=== PATIENT | male | born 1975 | race Caucasian/White ===

== ENCOUNTER → 2019-10-26 14:00 | Outpatient (CLI) | payer OTHER, SELFPAY ==
[2019-10-26 13:49] VITALS: BMI 28.5
--- NOTE | 2019-10-26 14:04 | RAD_ITS ---
STUDY: X-RAY - CERVICAL SPINE REASON FOR EXAM: Male, 43 years old. Neck pain TECHNIQUE: 4 view(s) of the cervical spine were obtained. COMPARISON: None FINDINGS: Normal anterior atlantoaxial articulation. Normal odontoid process. Normal cervical lordosis. There is multi-level endplate spondylosis. Normal disc space heights. Normal visualized intervertebral neuroforamina. The soft tissue structures are unremarkable. The flexion-extension views show limited range of motion suggesting muscles spasm. There is no evidence of instability. RAD/Cerv Spine 4 or 5 Views IMPRESSION: There is multi-level endplate spondylosis of the visualized cervical spine. Electronically Signed: Kannan Fernandez, at 7:42 EST Tel , Service support ,
== END ==
PROVIDERS: Referring Provider Orthopaedic Surgery; Visit Provider Orthopaedic Surgery
DX: M47.812 Spondylosis without myelopathy or radiculopathy, cervical region (principal)
CPT/HCPCS: 72050

== ENCOUNTER 2025-04-04 07:10 | Day surgery (SDC) | payer OTHER, SELFPAY ==
--- NOTE | 2025-04-01 12:02 | EKG12_ITS ---
Test Reason : PREOP Blood Pressure : */* mmHG Vent. Rate : 65 BPM Atrial Rate : 65 BPM P-R Int : 150 ms QRS Dur : 98 ms QT Int : 394 ms P-R-T Axes : 38 -1 38 degrees QTcB Int : 409 ms Normal sinus rhythm Normal ECG Confirmed by HILARIO TORRES, MAAME ([id number]), associate editor ZHANNA LAGOS ([id number]) on 04/01/2025 1:14:31 PM Referred By: Anand Gutierrez Confirmed By: MAAME RICH MD
[2025-04-04] VITALS (8 sets, daily range): BP systolic 112–136; BP diastolic 60–92; PULSE 76–95; RESP 14–18; TEMP 36.1–36.6; O2SAT 92–97
[2025-04-04] MEDS: Lactated Ringers 1,000 ML 15 ML IV (07:51)
--- NOTE | 2025-04-04 08:17 | PCM.PRE.AN2 ---
ASA Classification* ASA Classification ASA Classification: 2 (REDDY (has inspire implant), HTN, allergies) Assessment & Plan Anesthesia* Anesthesia Assessment Anesthesia Assessment: Discussed sedation and/or anesthesia options, risks, benefits, and alternatives with patient/parents/legal guardian/POA. Questions invited. The patient/parents/legal guardian/POA seems to understand and agrees to proceed with anesthesia plan. Reviewed the physical assessment, medical history, allergy history and patient home medications list prior to surgery/procedure/anesthetic and documented any changes. Performed airway and anesthesia risk assessments. Anesthesia Type Anesthesia Type: General Anesthesia Focused Assessment* Temperature: 97.6 F Pulse Rate: 76 Blood Pressure: 136/88 Respiratory Rate: 16 Pulse Ox: 97 Oxygen Delivery Method: Room Air Airway Assessment Mouth opens: >3 cm Mallampati Score: II Teeth Condition: Intact Neck Range of motion (ROM): Full ROM Focused Labs Anesthesia Preop lab: CBC WBC Pending 04/04/25 08:00 04/04/25 RBC Pending 04/04/25 08:00 04/04/25 Hgb Pending 04/04/25 08:00 04/04/25 Hct Pending 04/04/25 08:00 04/04/25 Plt Count Pending 04/04/25 08:00 04/04/25 CHEMISTRY COAG Pre-Assessment Diagnosis/Proposed Procedure Planned Operative Procedure(s): Septoplasty,Resect/Outfractur Turbinates Anesthesia History Anesthesia History - improvement specialist: Anesthesia History - improvement specialist Hx Hospitalization No 03/29/25 08:20 Any Problems With Anesthesia No 03/29/25 08:20 Cholinesterase deficiency No 03/29/25 08:20 You/Your Family Experience No 03/29/25 08:20 fever (hyperthermia) with Relationship Recent Exposure to Contagious No 04/04/25 07:38 Disease Does patient have nerve No 03/29/25 08:20 stimulator Patient instructed to have device shut off --Does patient have Pacemaker No 04/04/25 07:38 or ICD? When Was Last Pacemaker Check QUESTION #4 FULL TEXT: You/Your Family Experience fever (hyperthermia) with Anesthesia Last Oral Intake Last Oral intake: Last Oral Intake NPO since 19:00 04/04/25 07:38 Meds taken in AM with sips of Yes 04/04/25 07:38 water? Meds patient instructed to amlodipine 04/04/25 07:38 take am of surgery PONV PONV - improvement specialist: PONV - improvement specialist Female No 03/29/25 08:20 HX of Motion Sickness No 03/29/25 08:20 HX of N/V After Surgery No 03/29/25 08:20 Non-Smoker Yes 03/29/25 08:20 Duration of Surgery greater Yes 03/29/25 08:20 than 60 minutes Number of Risk Factors 2 03/29/25 08:20 PONV Score Moderate Risk 03/29/25 08:20 Height & Weight Height & Weight: Anesthesia: Height & Weight Height 5 ft 5 in 04/04/25 07:38 Respiratory Assessment Respiratory Assessment - improvement specialist: Respiratory Tract Infection Hx - improvement specialist Hx Respiratory Tract Infection No 03/29/25 08:20 STOP Sleep Apnea STOP Sleep Apnea - improvement specialist: STOP Sleep Apnea - improvement specialist Hx Hypertension Yes: conrtrolled with med 03/29/25 08:20 Hx Sleep Apnea Yes 03/29/25 08:20 CPAP Yes 03/29/25 08:20 BIPAP No 03/29/25 08:20 Do you snore loudly (louder than talking or can be heard Do you often feel tired/ fatigued/ sleepy during daytime? Has anyone observed you stop breathing during sleep? STOP Results Positive 03/29/25 08:20 QUESTION #5 FULL TEXT : Do you snore loudly (louder than talking or can be heard through closed doors)? 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 Specify any problems Hx of Preganancy in last 3 N/A 03/29/25 08:20 Months Nurse Filling Out Transfusion NBUCHER 03/29/25 08:20 & Questions: Date: 03/29/25 03/29/25 08:20 Time: 08:23 03/29/25 08:20 Patient unable to answer at this time (ie. confused, unrespo /Reproduction History /Reproductive History - improvement specialist: /Reproductive Hx- improvement specialist Hx Now No 03/29/25 08:20 Gestational Age (in weeks): EDC: Hx Hx Para Hx Section SAB No 03/29/25 08:20 Active Medications Active Medications: Current Medications Generic Name Dose Route Start Last Admin Trade Name Freq PRN Reason Stop Dose Admin Lactated Ringer's 1,000 mls @ 15 mls/hr 04/04/25 07:30 04/04/25 07:51 IV 15 mls/hr .Q48H JACI Administration PFS Medical History (Updated 03/29/25 @ 08:26 by Esperanza Zuniga) Wears hearing aid Loss of hearing CPAP (continuous positive airway pressure) dependence Sleep apnea Former smoker Hypertension Home Medications ?Medication ?Instructions ?Recorded ?Last Taken ?Type amlodipine 5 mg tablet 5 mg PO DAILY 10/26/19 04/04/25 06:00 History fluticasone propionate 50 2 spray intranasal DAILY 03/29/25 Unknown History mcg/actuation nasal spray,suspension montelukast 10 mg tablet 10 mg PO DAILY 03/29/25 Unknown History trazodone 100 mg tablet 100 mg PO QHS 03/29/25 Unknown History Allergy/AdvReac Type Severity Reaction Status Date / Time bacitracin (From Neosporin Allergy bumps form Verified 04/04/25 07:37 ([id number])) neomycin (From Neosporin Allergy bumps form Verified 04/04/25 07:37 ([id number])) polymyxin B (From Neosporin Allergy bumps form Verified 04/04/25 07:37 ([id number])) Surgical History (Updated 03/29/25 @ 08:26 by Esperanza Zuniga) History of surgery H/O vasectomy Social History (Updated 10/26/19 @ 15:[address] Frances Aldridge MD) Smoking Status: Former smoker alcohol intake: current Review of Systems (Anesthesia) ROS Narrative System reviewed and no additional complaints, except as documented. Physical Exam Const alert, oriented x3 and average body habitus Resp normal respiratory effort, normal air movement and clear to auscultation bilaterally Cardio regular rate, regular rhythm, no murmurs and diaphoretic
[2025-04-04 08:18] LABS: Hematocrit 40.3 % (40-54); Hemoglobin 14.8 g/dL (13.0-16.5); Mean Corp Hgb Conc 36.7 g/dL (32-36); Mean Corpuscular Hgb 30.3 pg (27.0-32.0); Mean Corpuscular Volume 82.6 fL (80-94); Mean Platelet Vol. 9.7 fl (6.2-12.0); Platelet Count 237 K/mm3 (150-450); RBC Distribution Width CV 11.9 % (11.6-14.6); RBC Distribution Width SD 35.6 fl (35.1-43.9); Red Blood Count 4.88 M/mm3 (4.6-6.2); White Blood Count 7.1 K/mm3 (4.4-11.0)
--- NOTE | 2025-04-04 08:45 | ETH_PTH ---
PATIENT: SAM MURRY LOC: [facility] [place] U#:[id number] AGE/SX: 49/M ROOM: RE04/04/[address]: Dr. Anand Gutierrez MD : [id number] BED: DIS: 04/04/2025 SPEC #: [id number] RECD: 04/04/25 10:48 STATUS: MARY TAE #: [id number] MILAGROS: 04/04/25 08:[address]: Anand Gutierrez DEPT: SURGICAL PATHOLOGY RECD BY: Ranulfo Orosco ENTERED: 04/04/25 11:47 SP TYPE: ETH TISS OTHR DR: [facility] Tissues: A - Ethmoid sinus, NOS Procedures: Decalcification bone/plaque Surgery Specimen Level IV HEADER OPERATION: Septoplasty, submucous resection turbinates PRE-OP DIAGNOSIS: Nasal obstructive airway, deviated nasal septum, hypertrophy tubrinates TISSUE SUBMITTED: A- Nasal septal cartilage MICROSCOPIC DIAGNOSIS A. Nasal septum, septoplasty: * Benign cartilage and bone MICROSCOPIC DESCRIPTION Slides are reviewed. GROSS DESCRIPTION A. Received in formalin in a container labeled with the patient's name, date of , and nasal are multiple red-pink, irregular, and indurated fragments of cartilage measuring 2.4 x 2.4 x 1.0 cm in aggregate. The largest fragments are sectioned to reveal white-tinsley, uniform surfaces. 2 red-pink fragments are firm and calcified, possibly consistent with bone measuring 2.0 x 0.8 x 0.3 cm and 2.5 x 0.5 x 0.3 cm. Submitted entirely as follows:A1. CartilageA2. Bone following decalcification [facility] 04-04-2025 CPT:44202,57841
--- NOTE | 2025-04-04 09:04 | PCM.DC.SUM ---
Providers Primary Care Physician: [facility] Reason For Visit: Septoplasty,Resect/Outfractur Turbinates Medications at Discharge Home Medications amlodipine 5 mg tablet 5 mg PO DAILY 10/26/19 fluticasone propionate 50 mcg/actuation nasal spray,suspension 2 spray intranasal DAILY 03/29/25 montelukast 10 mg tablet 10 mg PO DAILY 03/29/25 trazodone 100 mg tablet 100 mg PO QHS 03/29/25 ABG / Lab / Microbiology Data 04/04/25 08:00 Laboratory: Laboratory Results - last 24 hr 04/04/25 08:00: WBC 7.1, RBC 4.88, Hgb 14.8, Hct 40.3, MCV 82.6, MCH 30.3, MCHC 36.7 H, RDW Std Deviation 35.6, RDW Coeff of Jeronimo 11.9, Plt Count 237, MPV 9.7 D/C Instructions Discharge Diet: No restrictions Additional Activity Instructions: No nose blowing Start saline 3x/day on 04/05/25 DC O2, CPAP, BIPAP Needs Home O2 Discharge instructions: No Please Follow Up With: Anand Gutierrez MD When: 8 days Meaningful Use Info Meaningful Use Meaningful Use Diagnoses (Choose all that apply): None applicable Ischemic Stroke Statin Dosing Therapy Reference: STATIN DOSE THERAPY REFERENCE: * Patients > 75 years receive moderate or high dose statin therapy. * Patients 75 years or YOUNGER should receive HIGH intensity statin dose unless contraindicated. You will be required to document reason for non-treatment if statin daily dose does not meet guidelines. HIGH DOSE STATIN THERAPY DAILY Atorvastatin > than or = to 40 mg Rosuvastatin > than or = to 20 mg Amlodipine + Atorvastatin > than or = to 2.5/40 mg Ezetimibe + Simvastatin 10/80 mg Simvastatin 80mg Discharge Plan Admission Attending Provider: Anand Gutierrez Primary Care Provider: [facility] Instructions Print Language: Kiswahili Discharge Orders/Prescriptions Prescriptions: No Action amlodipine 5 mg tablet 5 mg PO DAILY trazodone 100 mg tablet 100 mg PO QHS fluticasone propionate 50 mcg/actuation spray,suspension 2 spray INTRANASAL DAILY montelukast 10 mg tablet 10 mg PO DAILY Referrals / Follow Up: [facility] [Primary Care Provider] - Disposition Disposition (needs filled in before D/C Order can be placed): Home, Self Care
--- NOTE | 2025-04-04 09:05 | OP.PCM_ITS ---
Operative Report (Standard) Operative Information Date of Procedure: 04/04/25 Pre-Operative Diagnosis: nasal airway obstruction deviated septum inferior turbinate hypertrophy bilaterally Post-Operative Diagnosis: same Surgery/Procedure Performed: Septoplasty Submucous resection inferior turbinates bilaterally information assurance engineer: No Type of Anesthesia: General RN Documented Start/Stop Times: Operation Date: 04/04/25 08:45 Case Time Into Pre-Op 04/04/25 07:21 Out of Pre-Op 04/04/25 08:58 Procedure Start Time: 09:18 Procedure Stop Time: 10:05 Select all DRAINS/GRAFTS/IMPLANTS that apply: None Estimated Blood Loss: minimal Specimen collected: Yes Description of specimen(s) removed: septum Description of surgery: The patient was taken to the operating room on 04/04/25. He was placed in supine position on the operating table. He was given sufficient general endotracheal anesthesia. The table was elevated 30 degrees. The nose was draped sterilely. 1% lidocaine with epinephrine was injected into the septum nasal floor anterior aspect of the inferior turbinates bilaterally. Nasal hair was trimmed with the scissors and removed. A right hemitransfixion incision was made with a 15 blade. The mucoperichondrium was elevated off of the left-hand side of the septum with a [place] elevator. An anterior and posterior tunnel were created in this fashion. The bony cartilaginous junction was with a [place] elevator. A posterior tunnel was created on the right side developed by elevating the mucoperichondrium with a [place]. The deviated portions of bony septum removed using open Jl-Moffett forceps. Next I established a plane on the right-hand side of the quadrangular cartilage as it was completely deviated into the right nasal cavity. I left a superior and anterior cartilage strip of 1.5 cm however the rest the quadrangular cartilage was excised with open jl moffett forceps. The maxillary crest was removed with a hammer and chisel. The remaining quadrangular cartilage was scored with a 15 blade. Afrin was used for hemostasis as well as Suma powder. Next, an incision was placed anterior aspect of the right inferior turbinate at the mucocutaneous junction. A submucous plane established with a caudal elevator. Submucous resection was carried out using a microdebrider where bone and tissue were removed. Afrin pledgets were used for hemostasis. The incision was then closed with 4-0 chromic. Then, an incision was placed at the anterior aspect of the left inferior turbinate at the mucocutaneous junction. A submucous plane established using a caudal elevator. Submucous resection was carried out using a microdebrider where bone and tissue were removed. The incision was then closed with 4-0 chromic. Afrin and Suma were used for hemostasis. The hemitransfixion incision was closed with 4-0 chromic. Story nasal splints were applied to each side of the septum and sewn through and through with 3-0 silk. The patient was then awoken and brought to the recovery room in stable condition. Blood loss minimal, replacement none. Sponge, needle count, sponge count, were correct at the end of this procedure. Surgical Findings: deviated septum turbinate hypertrophy Complications Complications: No
[2025-04-04] MEDS: Lidocaine 1% /Epi 1:100 (20ml) 20 ML Vial (09:18)
[2025-04-04] MEDS: Oxymetazoline 0.05% 1 SPRAY SPRAY.BTL 15 SPRAY (09:18)
[2025-04-04] MEDS: Mupirocin Ointment 22gm Tube 1 APPLIC (09:52)
--- NOTE | 2025-04-04 10:22 | PCM.POST.ANE ---
Anesthesia: Postop Eval I Current Vital Signs Temperature: 97 F Pulse Rate: 93 Blood Pressure: 112/60 Respiratory Rate: 16 Pulse Ox: 93 Oxygen Delivery Method: Room Air Assessment Airway patent: Yes Spontaneous unlabored respirations: Yes Mental status: Awake and Uncooperative nausea: No Vomiting: No Anesthesia Complication: No Fluid Hydration Crystalloid volume administer (ml): 1,100 Total IV fluid infused: 1,100 Progress Note Anesthesia document: Postop Eval 1 completed: Yes
--- NOTE | 2025-04-04 10:48 | POSTOPAN2_ITS ---
Anesthesia Postop Eval I Sum Postop Eval Completion status Anesthesia document: Postop Eval 1 completed: Yes Anesthesia Postop Eval I Summary Anesthesia Postop Eval I Summary: Anesthesia Postop Eval I: Assessment Summary Airway patent Yes 04/04/25 10:23 GIN INSPECTOR.PKEL Spontaneous unlabored Yes 04/04/25 10:23 GIN INSPECTOR.PKEL respirations Mental status Awake, 04/04/25 10:23 GIN INSPECTOR.PKEL Uncooperative nausea No 04/04/25 10:23 GIN INSPECTOR.PKEL Vomiting No 04/04/25 10:23 GIN INSPECTOR.PKEL Anesthesia Postop Eval I: Fluid Summary Crystalloid volume administer 1,100 04/04/25 10:23 GIN INSPECTOR.PKEL (ml) Colloids volume administered ( ml) Blood Product volume administered (ml) Total IV fluid infused 1,100 04/04/25 10:23 GIN INSPECTOR.PKEL Anesthesia Postop Eval I: Summary Notes Anesthesia Complication No 04/04/25 10:23 GIN INSPECTOR.PKEL Anesthesia Complication Comment: Post-operative progress note Anesthesia: Postop Eval II Evaluation Mental status: Awake Pain Level: 0 nausea: No Vomiting: No Complications Anesthesia Complication: No
--- NOTE | 2025-04-04 10:48 | PCM.POSTANE2 ---
Anesthesia Postop Eval I Sum Postop Eval Completion status Anesthesia document: Postop Eval 1 completed: Yes Anesthesia Postop Eval I Summary Anesthesia Postop Eval I Summary: Anesthesia Postop Eval I: Assessment Summary Airway patent Yes 04/04/25 10:23 EXECUTIVE VICE PRESIDENT AND CHIEF OPERATING OFFICER.PKEL Spontaneous unlabored Yes 04/04/25 10:23 EXECUTIVE VICE PRESIDENT AND CHIEF OPERATING OFFICER.PKEL respirations Mental status Awake, 04/04/25 10:23 EXECUTIVE VICE PRESIDENT AND CHIEF OPERATING OFFICER.PKEL Uncooperative nausea No 04/04/25 10:23 EXECUTIVE VICE PRESIDENT AND CHIEF OPERATING OFFICER.PKEL Vomiting No 04/04/25 10:23 EXECUTIVE VICE PRESIDENT AND CHIEF OPERATING OFFICER.PKEL Anesthesia Postop Eval I: Fluid Summary Crystalloid volume administer 1,100 04/04/25 10:23 EXECUTIVE VICE PRESIDENT AND CHIEF OPERATING OFFICER.PKEL (ml) Colloids volume administered ( ml) Blood Product volume administered (ml) Total IV fluid infused 1,100 04/04/25 10:23 EXECUTIVE VICE PRESIDENT AND CHIEF OPERATING OFFICER.PKEL Anesthesia Postop Eval I: Summary Notes Anesthesia Complication No 04/04/25 10:23 EXECUTIVE VICE PRESIDENT AND CHIEF OPERATING OFFICER.PKEL Anesthesia Complication Comment: Post-operative progress note Anesthesia: Postop Eval II Evaluation Mental status: Awake Pain Level: 0 nausea: No Vomiting: No Complications Anesthesia Complication: No
[2025-04-04] MEDS: HYDROcodone Bitartrate/Apap 5/325 Tablet PO (11:08)
== END 2025-04-04 12:05 | disposition home or self-care (01) ==
LOC: SDC 07:11 → AC 07:17
PROVIDERS: Anesthesiology; Referring Provider Otolaryngology; Visit Provider Otolaryngology
PROC: (CPT 30520; principal; 2025-04-04 08:30)
DX: J34.89 Other specified disorders of nose and nasal sinuses (principal); J34.2 Deviated nasal septum; J34.3 Hypertrophy of nasal turbinates; G47.30 Sleep apnea, unspecified; J30.2 Other seasonal allergic rhinitis; I10 Essential (primary) hypertension; Z79.899 Other long term (current) drug therapy
CPT/HCPCS: 30520; 30140; 00160; 85027; 88305; 88311; 93005; J2405